=== PATIENT | female | born 1960 | race Caucasian/White ===

== ENCOUNTER 2018-06-09 06:40 | Day surgery (SDC) | payer BC ==
[~2018-06-09] VITALS: Ht 170.2 cm; Wt 104.3 kg
[2018-06-09] MEDS ORDERED: CEFAZOLIN SOD 1 GM in D5W 50 ML IV ONE (06:45)
[2018-06-09] MEDS ORDERED: LR 1,000 ML IV SCH (12:14)
[2018-06-09] MEDS ORDERED: MORPHINE 4 MG/ML INJ. SYRINGE IVP PRN ×3 (12:15)
[2018-06-09] MEDS ORDERED: METOCLOPRAMIDE HCL 10 MG/2 ML VIAL IVP PRN (12:15)
[2018-06-09] MEDS ORDERED: LR 1,000 ML IV.SOLN IV ONE (12:30)
[2018-06-09] MEDS ORDERED: ONDANSETRON HCL 4 MG/2 ML VIAL ONE (12:30)
[2018-06-09] MEDS ORDERED: SEVOFLURANE 15 MIN GAS INH ONE (12:30)
[2018-06-09] MEDS ORDERED: SUCCINYLCHOLINE CHLORIDE 20 MG/ML(QUELICIN) ONE (12:30)
[2018-06-09] MEDS ORDERED: fentaNYL CITRATE/PF 100 MCG/2 ML AMP ONE (12:30)
[2018-06-09] MEDS ORDERED: BUPIVACAINE /PF 0.25% 30 ML VIAL INJ ONE (12:30)
[2018-06-09] MEDS ORDERED: MIDAZOLAM HCL 5 MG/ML VIAL (VERSED) IV ONE (12:30)
[2018-06-09] MEDS ORDERED: PROPOFOL 200MG/ 20ML VIAL (DIPRIVAN) IV ONE (12:30)
[2018-06-09 14:55] VITALS: BP_SYST 133
[2018-06-09] MEDS ORDERED: HYDROmorphone 1 MG INJ. 1 MG/ML AMPUL IVP PRN (15:00)
[2018-06-09] MEDS ORDERED: D5/0.45 NS 1,000 ML IV SCH (15:13)
[2018-06-09] MEDS ORDERED: HYDROcodone/ACETAMIN 5-325 MG TAB (NORCO/ VICODIN) PO PRN ×2 (15:30)
== END 2018-06-09 14:30 | disposition home or self-care (01) ==
LOC: SDS 06:40
PROVIDERS: ATTEND Colon & Rectal Surgery
DX: D48.61 Neoplasm of uncertain behavior of right breast (principal); I10 Essential (primary) hypertension; G43.709 Chronic migraine without aura, not intractable, without status migrainosus; J30.9 Allergic rhinitis, unspecified; H69.80 Other specified disorders of Eustachian tube, unspecified ear; K21.9 Gastro-esophageal reflux disease without esophagitis; E78.5 Hyperlipidemia, unspecified; N63.10 Unspecified lump in the right breast, unspecified quadrant; N95.1 Menopausal and female climacteric states; E66.3 Overweight; Z98.890 Other specified postprocedural states; Z79.899 Other long term (current) drug therapy
CPT/HCPCS: 19081; 19301; 88307; J0330; J0690; J2250; J2405; J2704; J3010; J3490; J7060; J7120; 76098-TC; 88305